=== PATIENT | male | born 1990 | race Caucasian/White ===

== ENCOUNTER → 2022-07-24 11:02 | Outpatient (BNVA) | payer OTHER, SELFPAY | PROVIDERS: Visit Provider Physician Assistant Medical | DX: M54.50 Low back pain, unspecified (principal); M53.3 Sacrococcygeal disorders, not elsewhere classified | CPT/HCPCS: 72202; 99202 ==

== ENCOUNTER → 2022-07-31 14:21 | Outpatient (BNVA) | payer OTHER, SELFPAY | PROVIDERS: Visit Provider Physician Assistant Medical | DX: M54.50 Low back pain, unspecified (principal); M46.1 Sacroiliitis, not elsewhere classified | CPT/HCPCS: 99213 ==

== ENCOUNTER 2022-08-14 12:34 | Outpatient (RCR) | payer OTHER, SELFPAY ==
--- NOTE | 2022-08-14 16:42 | MHC.PT.EP ---
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 He injured himself about 3 weeks ago when he fell at work landing on left side. Upon exam his S/S are consistent with SI joint dysfunction. Upon exam impairments include decreased lumbar and LE ROM and strength, altered posture and positioning, altered gait pattern and decreased soft tissue mobility and increased pain. Impairments include decreased ability to perform lifting, bending, reaching, pushing and pulling. He reports decreased ability to perform homemaking and self care tasks, decreased ability to perform work tasks such as prolonged walking or standing. He reports disrupted sleep. Eval was somewhat limited today due to pain, S/S suspicious for SI joint dysfunction and will cont assessment at next visit as pain levels allow. Frequency and Duration: The patient will be seen 2 x week for 4 weeks Short Term Goals: Initiate HEP and promote self management of symptoms Cont SI jt assess [employer] Goals: To ambulate ad cheryl on variable surfaces without pain greater than 2/10 for a minimum of 30 min To demonstrate 5/5 LE strength, equal pj To negotiate stairs with reciprocal gait To perform full functional squat and lift 20# with appropriate body mechanics To demonstrate full lumbar ROM without pain greater than 2/10 Independent HEP Treatment Plan: Modalities to reduce pain, spasms and effusion. Manual therapy to restore motion and function. Therapeutic exercise to improve strength and flexibility. Neuromuscular re-education for posture and balance. Therapeutic activities to return to functional activities of daily living. Electronically signed by: Nevaeh Calixto PT, DPT Please sign and return to therapist. Thank you for your referral.
== END 2022-09-11 08:39 | disposition home or self-care (01) ==
LOC: HO.PT 12:34
PROVIDERS: Visit Provider Physician Assistant Medical
DX: M54.50 Low back pain, unspecified (principal); Z91.81 History of falling
CPT/HCPCS: 97110; 97162

== ENCOUNTER → 2022-08-17 14:26 | Outpatient (BNVA) | payer OTHER, SELFPAY | PROVIDERS: Visit Provider Physician Assistant | DX: M54.41 Lumbago with sciatica, right side (principal) | CPT/HCPCS: 99213 ==

== ENCOUNTER → 2022-08-23 14:27 | Outpatient (BNVA) | payer OTHER, SELFPAY | PROVIDERS: Visit Provider Physician Assistant Medical | DX: M54.50 Low back pain, unspecified (principal); M53.3 Sacrococcygeal disorders, not elsewhere classified | CPT/HCPCS: 99213 ==

== ENCOUNTER → 2022-09-13 14:41 | Outpatient (BNVA) | payer OTHER, SELFPAY | PROVIDERS: Visit Provider Internal Medicine | DX: M54.50 Low back pain, unspecified (principal); M53.3 Sacrococcygeal disorders, not elsewhere classified | CPT/HCPCS: 99213 ==